=== PATIENT | male | born 1990 | race Hispanic/Latino ===

== ENCOUNTER 2020-04-01 11:30 | Emergency (ER) | payer SELFPAY ==
[2020-04-01 12:21] LABS: Absolute Lymphocytes (CBC) 2.2 K/uL (0.7-4.9); Basophils % 0.5 % (0-1.3); Lymphocytes % 28.5 % (15.3-44.8); MPV 8.1 fL (7.6-11.3); RBC Red Blood Cell Count 5.13 M/uL (4.33-5.43)
[2020-04-01] MEDS ORDERED: NA CHLORIDE 0.9% 2,000 ML ONE (12:22)
[2020-04-01 12:25] LABS: Protime INR 0.97
[2020-04-01 12:38] LABS: ALT/SGPT 39 U/L (12-78); AST/SGOT 25 U/L (15-37); Albumin 4.2 g/dL (3.4-5.0); Alkaline Phosphatase 88 U/L (45-117); BUN Blood Urea Nitrogen 10 mg/dL (7-18); Bicarbonate 25 mmol/L (21-32); Bilirubin Direct 0.1 mg/dL (0-0.2); Bilirubin Total 0.5 mg/dL (0.2-1.0); Glucose Level 111 mg/dL (74-106); Magnesium 2.1 mg/dL (1.8-2.4); NT PRO-BNP 12 pg/mL (<125); Potassium 3.7 mmol/L (3.5-5.1); Protein, Total 8.2 g/dL (6.4-8.2); Sodium Level 139 mmol/L (136-145); Troponin (Emerg Dept Use Only) < 0.02 ng/mL (0.0-0.045)
--- NOTE | 2020-04-01 12:51 | ER ---
Nurse's Notes [facility] Name: Benji Cameron Age: 29 yrs Sex: Male : 1990 Arrival Date: 04/01/2020 Time: 11:33 Bed 16 Private MD: Diagnosis: Dizziness and giddiness Presentation: 04/01 11:51 Chief complaint: Patient states: Intermittent dizziness x 1 week. Headache that began ss yesterday. Denies cough, fever, N/V/D. Coronavirus screen: Proceed with normal triage. Patient denies a cough. Patient denies shortness of breath or difficulty breathing. Patient denies measured and/or subjective temperature greater than 100.4F prior to today's visit. Patient denies travel on a cruise ship or to a country the [facility] currently lists as an affected area. Patient denies contact with known and/or suspected case of COVID-19. Ebola Screen: Patient denies exposure to infectious person. Patient denies travel to an Ebola-affected area in the 21 days before illness onset. Initial Sepsis Screen: Does the patient meet any 2 criteria? No. Patient's initial sepsis screen is negative. Does the patient have a suspected source of infection? No. Patient's initial sepsis screen is negative. Risk Assessment: Do you want to hurt yourself or someone else? Patient reports no desire to harm self or others. Onset of symptoms was March 24, 2020. 11:51 Method Of Arrival: Ambulatory ss 11:51 Acuity: LISET 3 ss Historical: - Allergies: 11:53 No Known Allergies; ss - Home Meds: 11:53 None [Active]; ss - PMHx: 11:53 None; ss - PSHx: 11:53 None; ss - Immunization history:: Adult Immunizations unknown. - Social history:: Smoking status: Patient reports the use of cigarette tobacco products, denies chronic smoking, but will smoke occasionally. Screenin:25 Abuse screen: Denies threats or abuse. Nutritional screening: No deficits noted. ll1 Tuberculosis screening: No symptoms or risk factors identified. Fall Risk None identified. Total Tatum Fall Scale indicates No Risk (0-24 pts). Assessment: 12:23 General: Appears in no apparent distress. Behavior is calm, cooperative, appropriate ll1 for age. Pain: Denies pain. Neuro: Reports dizziness, since 1 week intermettantly. Cardiovascular: No deficits noted. Reports chest pain, Heart tones S1 S2 Capillary refill < 3 seconds Clubbing of nail beds is absent Thorax Patient's skin is warm and dry. Rhythm is sinus bradycardia Chest pain is described as vague, is located in anterior chest wall episodes are intermittent last < 1 minute. Respiratory: No deficits noted. GI: No deficits noted. 13:30 Reassessment: Patient appears in no apparent distress at this time. No changes from ll1 previously documented assessment. Patient and/or family updated on plan of care and expected duration. Pain level reassessed. Patient is alert, oriented x 3, equal unlabored respirations, skin warm/dry/pink. Vital Signs: 11:51 BP 138 / 82; Pulse 51; Resp 16; Temp 98.3(TE); Pulse Ox 99% on R/A; Weight 72.57 kg; ss Height 5 ft. 6 in. (167.64 cm); Pain 0/10; 12:00 BP 145 / 73 Supine; Pulse 48 RA; ll1 12:02 BP 156 / 91 Sitting; Pulse 59; ll1 12:04 BP 145 / 115; Pulse 63; ll1 12:30 BP 132 / 83; Pulse 48; Resp 17; ll1 13:32 BP 121 / 84; Pulse 55; Resp 16; Pulse Ox 99% ; Pain 0/10; ll1 11:51 Body Mass Index 25.82 (72.57 kg, 167.64 cm) ED Course: 11:33 Patient arrived in ED. mr 11:53 Triage completed. ss 11:53 Arm band placed on right wrist. ss 11:54 Jose Mendez NP is PHCP. pm1 11:54 Anthony Flores MD is Attending Physician. pm1 11:58 Heber Bourgeois, CHANTEL is Primary Nurse. ll1 12:05 Inserted saline lock: 20 gauge in left antecubital area, using aseptic technique. Blood ll1 collected. 12:25 Patient has correct armband on for positive identification. Bed in low position. Call ll1 light in reach. Side rails up X 1. conveyor monitor on. NIBP on. 12:27 EKG done, by ED staff, reviewed by Jose Mendez NP. jp3 12:29 XRAY Chest (1 view) In Process Unspecified. EDMS 13:34 No provider procedures requiring assistance completed. IV discontinued, intact, ll1 bleeding controlled, No redness/swelling at site. Pressure dressing applied. Administered Medications: 12:26 Drug: NS 0.9% 1000 ml Route: IV; Rate: 1000 ml; Site: left antecubital; ll1 13:31 Follow up: Response: No adverse reaction; RASS: Alert and Calm (0); IV Status: ll1 Completed infusion; IV Intake: 900ml 12:27 Drug: NS 0.9% 1000 ml Route: IV; Rate: 1000 ml; Site: left antecubital; ll1 13:31 Follow up: Response: No adverse reaction; RASS: Alert and Calm (0); IV Status: ll1 Completed infusion; IV Intake: 950ml Intake: 13:31 IV: 950ml; Total: 950ml. ll1 13:31 IV: 900ml; Total: 1850ml. ll1 Outcome: 12:50 Discharge ordered by MD. pm1 13:34 Discharged to home ambulatory. ll1 13:34 Condition: stable 13:34 Discharge instructions given to patient, Instructed on discharge instructions, follow up and referral plans. Demonstrated understanding of instructions, follow-up care. 13:35 Patient left the ED. ll1 Signatures: Dispatcher [employer] [facility] Ricci Bernie Alisa Mejía, Jose Pena RN, NP [employer] pm1 Gary Stevens jp3 Heber Bourgeois RN RN ll1
--- NOTE | 2020-04-01 12:51 | EDPHYS ---
Physician Documentation [facility] Name: Benji Cameron Age: 29 yrs Sex: Male : 1990 Arrival Date: 04/01/2020 Time: 11:33 Bed 16 Private MD: ED Physician Anthony Flores HPI: 04/01 12:06 This 29 yrs old Male presents to ER via Ambulatory with complaints of Passed pm1 Out Prior To Arrival, Dizziness. 12:06 The patient has experienced near-syncope, felt dizzy. Onset: The symptoms/episode pm1 began/occurred 1 week(s) ago. Duration: The patient has had multiple episodes. Context: occurred while the patient was working, changing positions from bent over to standing straight up. It would cause him to have dizziness for a few minutes. Associated injury: The patient did not suffer any apparent associated injury. Associated signs and symptoms: Pertinent positives: headache, Pertinent negatives: abdominal pain, chest pain, diarrhea, nausea. Current symptoms: Currently, the patient is not experiencing any symptoms. The patient has not experienced similar symptoms in the past. Patient reports drinking beer with family prior to onset of symptoms and thinks that it may have got him dehydrated. Historical: - Allergies: 11:53 No Known Allergies; ss - Home Meds: 11:53 None [Active]; ss - PMHx: 11:53 None; ss - PSHx: 11:53 None; ss - Immunization history:: Adult Immunizations unknown. - Social history:: Smoking status: Patient reports the use of cigarette tobacco products, denies chronic smoking, but will smoke occasionally. ROS: 12:06 Constitutional: Negative for fever, chills, and weight loss, Neck: Negative for injury, pm1 pain, and swelling, Cardiovascular: Negative for chest pain, palpitations, and edema, Respiratory: Negative for shortness of breath, cough, wheezing, and pleuritic chest pain, Abdomen/GI: Negative for abdominal pain, nausea, vomiting, diarrhea, and constipation, Back: Negative for injury and pain, MS/Extremity: Negative for injury and deformity, Skin: Negative for injury, rash, and discoloration. 12:06 Neuro: Positive for dizziness, headache, Negative for numbness, tingling, weakness. Exam: 12:06 Abdomen/GI: Exam negative for acute changes, Inspection: abdomen appears normal, pm1 Palpation: abdomen is soft and non-tender, in all quadrants, mass, is not appreciated, rebound tenderness, is not appreciated. 12:06 Constitutional: This is a well developed, well nourished patient who is awake, alert, and in no acute distress. Head/Face: Normocephalic, atraumatic. Neck: Trachea midline, no thyromegaly or masses palpated, and no cervical lymphadenopathy. Supple, full range of motion without nuchal rigidity, or vertebral point tenderness. No Meningismus. Chest/axilla: Normal chest wall appearance and motion. Nontender with no deformity. No lesions are appreciated. 12:06 Back: No spinal tenderness. No costovertebral tenderness. Full range of motion. Skin: Warm, dry with normal turgor. Normal color with no rashes, no lesions, and no evidence of cellulitis. MS/ Extremity: Pulses equal, no cyanosis. Neurovascular intact. Full, normal range of motion. 12:06 Cardiovascular: Exam negative for acute changes, Rate: normal, Rhythm: regular, Pulses: no pulse deficits are appreciated, Edema: is not appreciated. 12:06 Respiratory: Exam negative for acute changes, respiratory distress, shortness of breath. 12:06 Neuro: Exam negative for acute changes, Orientation: is normal, Mentation: is normal, Motor: is normal, moves all fours. Vital Signs: 11:51 BP 138 / 82; Pulse 51; Resp 16; Temp 98.3(TE); Pulse Ox 99% on R/A; Weight 72.57 kg; ss Height 5 ft. 6 in. (167.64 cm); Pain 0/10; 12:00 BP 145 / 73 Supine; Pulse 48 RA; ll1 12:02 BP 156 / 91 Sitting; Pulse 59; ll1 12:04 BP 145 / 115; Pulse 63; ll1 12:30 BP 132 / 83; Pulse 48; Resp 17; ll1 13:32 BP 121 / 84; Pulse 55; Resp 16; Pulse Ox 99% ; Pain 0/10; ll1 11:51 Body Mass Index 25.82 (72.57 kg, 167.64 cm) MDM: 11:54 Patient medically screened. pm1 12:48 Data reviewed: vital signs. Data interpreted: Pulse oximetry: on room air is 99 %. pm1 Interpretation: normal. 12:48 Counseling: I had a detailed discussion with the patient and/or guardian regarding: the pm1 historical points, exam findings, and any diagnostic results supporting the discharge/admit diagnosis, lab results, the need for outpatient follow up, to return to the emergency department if symptoms worsen or persist or if there are any questions or concerns that arise at home. 04/01 11:57 Order name: Basic Metabolic Panel; Complete Time: 12:48 pm1 04/01 11:57 Order name: CBC with Diff; Complete Time: 12:29 pm04/01 11:57 Order name: LFT's; Complete Time: 12:48 pm1 04/01 11:57 Order name: Magnesium; Complete Time: 12:48 pm1 04/01 11:57 Order name: NT PRO-BNP; Complete Time: 12:48 pm1 04/01 11:57 Order name: PT-INR; Complete Time: 12:34 pm1 04/01 11:57 Order name: Troponin (emerg Dept Use Only); Complete Time: 12:48 pm04/01 11:57 Order name: XRAY Chest (1 view); Complete Time: 13:08 pm04/01 11:57 Order name: EKG; Complete Time: 11:59 pm1 04/01 11:57 Order name: Cardiac monitoring; Complete Time: 12:28 pm04/01 11:57 Order name: EKG - Nurse/Tech; Complete Time: 12:28 pm04/01 11:57 Order name: IV Saline Lock; Complete Time: 12:28 pm04/01 11:57 Order name: Labs collected and sent; Complete Time: 12:28 pm04/01 11:57 Order name: O2 Per Protocol; Complete Time: 12:27 pm04/01 11:57 Order name: O2 Sat Monitoring; Complete Time: 12:27 pm04/01 11:57 Order name: Orthostatic Blood Pressure; Complete Time: 12:02 pm1 Administered Medications: 12:26 Drug: NS 0.9% 1000 ml Route: IV; Rate: 1000 ml; Site: left antecubital; ll1 13:31 Follow up: Response: No adverse reaction; RASS: Alert and Calm (0); IV Status: ll1 Completed infusion; IV Intake: 900ml 12:27 Drug: NS 0.9% 1000 ml Route: IV; Rate: 1000 ml; Site: left antecubital; ll1 13:31 Follow up: Response: No adverse reaction; RASS: Alert and Calm (0); IV Status: ll1 Completed infusion; IV Intake: 950ml Disposition: 04/01/20 12:50 Discharged to Home. Impression: Dizziness and giddiness. - Condition is Stable. - Discharge Instructions: Dehydration, Adult, Dizziness. - Medication Reconciliation Form, Thank You Letter, Antibiotic Education, Prescription Opioid Use form. - Follow up: Emergency Department; When: As needed; Reason: Worsening of condition. Follow up: Private Physician; When: 2 - 3 days; Reason: Recheck today's complaints, Continuance of care, Re-evaluation by your physician. - Problem is new. - Symptoms have improved. Addendum: 04/03/2020 20:12 Co-signature as Attending Physician, Anthony Flores MD I agree with the assessment and c carver plan of care. Signatures: Dispatcher [employer] EDDC Anthony Flores MD MD cha Smirch, Shelby, RN RN ss Jose Mendez NP [employer] pm1 Heber Bourgeois RN RN ll1 Corrections: (The following items were deleted from the chart) 04/01 13:35 12:50 04/01/2020 12:50 Discharged to Home. Impression: Dizziness and giddiness. ll1 Condition is Stable. Forms are Medication Reconciliation Form, Thank You Letter, Antibiotic Education, Prescription Opioid Use. Follow up: Emergency Department; When: As needed; Reason: Worsening of condition. Follow up: Private Physician; When: 2 - 3 days; Reason: Recheck today's complaints, Continuance of care, Re-evaluation by your physician. Problem is new. Symptoms have improved. pm1
--- NOTE | 2020-04-01 13:03 | RAD REPORT ---
EXAM DESCRIPTION: RAD - Chest Single View - 04/01/2020 12:29 pm CLINICAL HISTORY: syncope TECHNIQUE: AP portable chest image was obtained 04/01/2020 12:29 pm . FINDINGS: Lungs are clear. Heart and vasculature are normal. No measurable pleural effusion and no p neumothorax. No acute bony abnormality seen. No acute aortic findings suspected. IMPRESSION: No acute cardiopulmonary process.
[2020-04-01 13:54] VITALS: TEMP 98.3; O2SAT 99
[2020-04-01 14:01] VITALS: BP 121/84
--- NOTE | 2020-04-02 08:40 | EKG ---
Test Date: 2020-04-01 Test Time: 12:24:12 Maintenance Advisor: RICHA MEASUREMENT RESULTS: Intervals: Rate: 56 OR: 168 QRSD: 94 QT: 430 QTc: 414 Red Bud: P: 75 OR: 168 QRS: 94 T: 77 INTERPRETIVE STATEMENTS: Sinus bradycardia with sinus arrhythmia Rightward axis Incomplete right bundle branch block Borderline ECG No previous ECG available for comparison Electronically Signed On 04-02-20 08:40:11 CDT by Al Leavitt
== END 2020-04-01 13:35 | disposition home or self-care (01) ==
LOC: ER 11:30
DX: R42 Dizziness and giddiness (principal); F17.210 Nicotine dependence, cigarettes, uncomplicated
CPT/HCPCS: 36415; 71045; 80048; 80076; 83735; 83880; 84484; 85025; 85610; 93005; 96360; 99284; J7030